=== PATIENT | female | born 1970 | race American Indian/Alaskan Native ===

== ENCOUNTER 2021-04-24 16:54 | Inpatient (IN) | payer SELFPAY ==
[2021-04-24 19:56] LABS: Bilirubin,Urine NEG (Negative); Blood,Urine SM (Negative); Color,Urine Yellow (Yellow); Mucus,Urine FEW /HPF; Protein,Urine <15 mg/dL mg/dL (Negative); Urobilinogen,Urine < 2.0 mg/dL (<2.0); WBC,Urine < 1.0 /HPF (0.0-6.0)
--- NOTE | 2021-04-24 20:02 | Emergency Department Report ---
<ROSA MARIA MCINTYRE - Last Filed: 04/24/21 21:19> ED Abdominal Pain HPI - General Chief Complaint: Abdominal Pain Stated Complaint: ABD PAIN PUI?: No Time Seen by Provider: 04/24/21 19:48 Source: patient Mode of arrival: Ambulatory Limitations: No Limitations - History of Present Illness Initial Comments: 51-year-old female presents to the ER today with complaints of epigastric abdominal pain. Patient states that her symptoms started 6 days ago and has been gradually getting worse. She reports associated abdominal bloating, decreased appetite and feeling of fullness in the epigastric region and today she vomited x1. Emesis was mainly bilious. She denies any diarrhea or constipation. She denies any UTI symptoms. She states that she is postmenopausal, she hasn't had a menstrual cycle in 12 years. She denies any fever, chills or any abnormal vaginal symptoms. She denies any history of ab dominal surgeries in the past. MD Complaint: abdominal pain -: Gradual, days(s) ED Review of Systems Comment: All other systems reviewed and negative Constitutional: denies: chills, fever Eyes: denies: eye pain, eye discharge, vision change ENT: denies: ear pain, throat pain Respiratory: denies: cough, shortness of breath, SOB with exertion, SOB at rest, wheezing Cardiovascular: denies: chest pain, palpitations Gastrointestinal: abdominal pain, nausea, vomiting. denies: diarrhea, constipation, hematemesis, melena, hematochezia Genitourinary: denies: urgency, dysuria, discharge, abnormal menses, dyspareunia Musculoskeletal: denies: back pain, joint swelling, arthralgia, myalgia Skin: denies: rash, lesions, change in color, change in hair/nails, pruritus Neurological: denies: headache, weakness, numbness, paresthesias, confusion, abnormal gait, vertigo Psychiatric: denies: anxiety, depression, auditory hallucinations, visual hallucinations, homicidal thoughts, suicidal thoughts Hematological/Lymphatic: denies: easy bleeding, easy bruising, swollen glands ED Past Medical Hx - Past Medical History Previous Medical History?: No - Surgical History Past Surgical History?: No ED Physical Exam - General Limitations: No Limitations General appearance: alert, in no apparent distress - Head Head exam: Present: atraumatic, normocephalic, normal inspection - Eye Eye exam: Present: normal appearance, PERRL, EOMI Pupils: Present: normal accommodation - ENT ENT exam: Present: normal exam, mucous membranes moist, TM's normal bilaterally - Neck Neck exam: Present: normal inspection, full ROM - Respiratory Respiratory exam: Present: normal lung sounds bilaterally. Absent: respiratory distress, wheezes, rales, rhonchi - Cardiovascular Cardiovascular Exam: Present: regular rate, normal rhythm, normal heart sounds - GI/Abdominal GI/Abdominal exam: Present: soft, tenderness (TTP epigastric, RUQ, RLQ and s uprapubic area with mild guarding but no rebound. ). Absent: distended, guarding, rebound, rigid - Neurological Exam Neurological exam: Present: alert, oriented X3, CN II-XII intact, normal gait - Psychiatric Psychiatric exam: Present: normal affect, normal mood - Skin Skin exam: Present: intact ED Medical Decision Making - Lab Data Result diagrams: 04/24/21 19:56 04/24/21 19:56 - Medical Decision Making The patient's care has been transferred to and accepted by[DEMAR Rojas]. We discussed: The patient's chief complaints; labs and imaging that have been completed and those that are still pending; any treatment provided and the patient's response to treatment; any significant change in condition; the treatment plan prior to the transfer of care. The accepting provider will follow up on all pending labs and imaging and make any necessary changes to the current impression and/or treatment plan. The accepting physician/midlevel is now responsible for the patient's care and final disposition. ED Disposition Clinical Impression: Acute cholecystitis Disposition: ADMITTED INPATIENT Condition: Serious Instructions: Abdominal Pain (ED) <VIANNEY DUFFY - Last Filed: 04/24/21 23:36> ED Review of Systems ROS: Stated complaint: ABD PAIN Other details as noted in HPI ED Course Vital Signs 04/24/21 17:07 Temperature 97.9 F Pulse Rate 60 Respiratory 18 Rate Blood Pressure 136/77 O2 Sat by Pulse 100 Oximetry ED Medical Decision Making - Lab Data Result diagrams: 04/24/21 19:56 04/24/21 19:56 - Radiology Data [facility] [address] [place] [address] Cat Scan Report Signed Patient: MONET HENRIQUEZ MR#: [id number] 0 : 1970 Acct:[id number] Age/Sex: 51 / F ADM Date: 04/24/21 Loc: ED Attending Dr: Ordering Physician: ROSA MARIA MCINTYRE Date of Service: 04/24/21 Procedure(s): CT abdomen pelvis w con Accession Number(s): [id number] cc: ROSA MARIA MCINTYRE CT ABDOMEN AND PELVIS WITH CONTRAST INDICATION / CLINICAL INFORMATION: Pt complains of epigastric abd pain with vomiting.. TECHNIQUE: Axial CT images were obtained through the abdomen and pelvis after 100 cc of Omnipaque [address] scans at this location are performed using CT dose reduction for ALARA by means of automated exposure control. COMPARISON: None available. FINDINGS: LOWER CHEST: No significant abnormality. AORTA / ARTERIES: No significant abnormality. IVC / VEINS: No significant abnormality. LYMPH NODES: No significant adenopathy. COLON: No significant abnormality. APPENDIX: Not visualized. STOMACH / SMALL BOWEL: No significant abnormality. PERITONEUM: No free fluid. No free air. No fluid collection. LIVER: Hypoattenuating lesion within the right hepatic lobe which is too small to completely characterize but statistically likely represent simple hepatic cysts. GALLBLADDER: The gallbladder is distended. There is pericholecystic fluid. There is increased density within the gallbladder lumen consistent with cholelithiasis. BILE DUCTS: No significant abnormality. PANCREAS: No significant abnormality. SPLEEN: No significant abnormality. ADRENALS: No significant abnormality. RIGHT KIDNEY / URETER: No significant abnormality. LEFT KIDNEY / URETER: No significant abnormality. URINARY BLADDER: No significant abnormality. REPRODUCTIVE ORGANS: No significant abnormality. SKELETAL SYSTEM: No significant abnormality. ADDITIONAL FINDINGS: None. IMPRESSION: 1. Abnormal appearance of the gallbladder as demonstrated by gallbladder distention, cholelithiasis and pericholecystic fluid. This is concerning for acute cholecystitis. 2. Other findings as above. Signer Name: Rad Dugan DO Signed: 04/24/2021 10:35 PM Workstation Name: [id number] Transcribed By: BALDEV Dictated By: RAD DUGAN DO Electronically Authenticated By: RAD DUGAN DO Signed Date/Time: 04/24/212234 DD/ 2230 TD/TT: - Medical Decision Making Care of patient transferred by Rosa Maria Mcintyre PA-C at shift change pending radiology results. CT of the abdomen/pelvis shows gallbladder distention with pericholecystic fluid and increased density within the gallbladder lumen consistent with calculus cholecystitis. Patient is NPO. Patient given IV Rocephin and IV Flagyl. Ultrasound of the right upper quadrant ordered for further evaluation. Case discussed with Dr. Ibarra, general surgeon, who agrees to evaluate patient on hospital admission. Case discussed with Dr. Penn, hospitalist, who agrees to admit. Patient expressed understanding and is agreeable to plan of care. Critical care attestation.: If time is entered above; I have spent that time in minutes in the direct care of this critically ill patient, excluding procedure time. ED Disposition Is pt being admited?: Yes Does the pt Need Aspirin: No Time of Disposition: 23:36
[2021-04-24 20:16] LABS: Basophils % (Auto) 0.5 % (0.0-1.8); Eosinophils % (Auto) 0.3 % (0.0-4.3); Hematocrit 38.3 % (30.3-42.9); Hemoglobin 12.6 gm/dl (10.1-14.3); Lymphocytes # (Auto) 1.1 K/mm3 (1.2-5.4); Lymphocytes % (Auto) 19.9 % (13.4-35.0); Mean Corpuscular HGB Conc 33 % (30-34); Mean Corpuscular Volume 81 fl (79-97); Monocytes # (Auto) 0.6 K/mm3 (0.0-0.8); Monocytes % (Auto) 9.9 % (0.0-7.3); Platelet Count 370 K/mm3 (140-440); Red Blood Count 4.74 M/mm3 (3.65-5.03); Red Cell Distribution Width 17.5 % (13.2-15.2)
[2021-04-24 20:36] LABS: Alanine Aminotransferase 17 units/L (7-56); Albumin 4.3 g/dL (3.9-5); BUN/Creatinine Ratio 13; Bilirubin,Direct < 0.2 mg/dL (0-0.2); Blood Urea Nitrogen 8 mg/dL (7-17); Calcium 9.8 mg/dL (8.4-10.2); Hemolysis Index 146
--- NOTE | 2021-04-24 22:39 | Cat Scan Report ---
CT ABDOMEN AND PELVIS WITH CONTRAST INDICATION / CLINICAL INFORMATION: Pt complains of epigastric abd pain with vomiting.. TECHNIQUE: Axial CT images were obtained through the abdomen and pelvis after 100 cc of Omnipaque [address] scans at this location are performed using CT dose reduction for ALARA by means of automated exposure control. COMPARISON: None available. FINDINGS: LOWER CHEST: No significant abnormality. AORTA / ARTERIES: No significant abnormality. IVC / VEINS: No significant abnormality. LYMPH NODES: No significant adenopathy. COLON: No significant abnormality. APPENDIX: Not visualized. STOMACH / SMALL BOWEL: No significant abnormality. PERITONEUM: No free fluid. No free air. No fluid collection. LIVER: Hypoattenuating lesion within the right hepatic lobe which is too small to completely characte rize but statistically likely represent simple hepatic cysts. GALLBLADDER: The gallbladder is distended. There is pericholecystic fluid. There is increased density within the gallbladder lumen consistent with cholelithiasis. BILE DUCTS: No significant abnormality. PANCREAS: No significant abnormality. SPLEEN: No significant abnormality. ADRENALS: No significant abnormality. RIGHT KIDNEY / URETER: No significant abnormality. LEFT KIDNEY / URETER: No significant abnormality. URINARY BLADDER: No significant abnormality. REPRODUCTIVE ORGANS: No significant abnormality. SKELETAL SYSTEM: No significant abnormality. ADDITIONAL FINDINGS: None. IMPRESSION: 1. Abnormal appearance of the gallbladder as demonstrated by gallbladder distention, cholelithiasis a nd pericholecystic fluid. This is concerning for acute cholecystitis. 2. Other findings as above. Signer Name: Rad Mays DO Signed: 04/24/2021 10:35 PM Workstation Name: [id number]
[2021-04-24] MEDS ORDERED: LIDOCAINE-MPF (1%) 10 MG/1 ML VIAL 5 ML INFILTRATI ONE (23:27)
[2021-04-25] MEDS ORDERED: cefTRIAXone/NS 1 GM/50 ML 1 GM/50 ML BAG IV ONE (02:15)
--- NOTE | 2021-04-25 02:17 | Ultrasound Report ---
ULTRASOUND ABDOMEN, LIMITED (RIGHT UPPER QUADRANT) INDICATION: cholecystitis. COMPARISON: None available. FINDINGS: Pancreas: Visualized portion shows no significant abnormality. Liver: Normal. Gallbladder: Gallbladder wall thickening measuring up to 4 mm in thickness with large gallstone.. Bile ducts: Normal. Common Bile Duct measures 3 mm. Free fluid: None. Additional Findings: None. IMPRESSION: Gallbladder wall thickening with large gallstone concerning for acute cholecystitis Signer Name: Geoff Corrales MD Signed: 04/25/2021 2:13 AM Workstation Name: [id number]
[2021-04-25] MEDS ORDERED: metroNIDAZOLE/NS 500 MG/100 ML 500 MG/100 ML BAG IV ONE (02:20)
[2021-04-25] MEDS ORDERED: SODIUM CHLORIDE 0.9% 1000 ML 1,000 ML IV ONE (02:20)
[2021-04-25] MEDS ORDERED: MORPHINE 4 MG/1 ML INJ IV ONE (02:20)
[2021-04-25] MEDS ORDERED: ONDANSETRON 4 MG/2 ML INJ IV ONE (02:20)
[2021-04-25] MEDS ORDERED: ALBUTEROL 2.5 MG/3 ML NEBU IH PRN (03:45)
[2021-04-25] MEDS ORDERED: ACETAMINOPHEN 325 MG TAB PO PRN (03:45)
[2021-04-25] MEDS ORDERED: MORPHINE 2 MG/1 ML INJ IV PRN ×2 (03:45→17:28)
[2021-04-25] MEDS ORDERED: HYDROmorphone 1 MG/1 ML INJ IV PRN ×2 (03:45→13:48)
[2021-04-25] MEDS ORDERED: ONDANSETRON 4 MG/2 ML INJ IV PRN ×2 (03:45→13:48)
--- NOTE | 2021-04-25 03:52 | History and Physical Report ---
History of Present Illness Date of examination: 04/25/21 Date of admission: 04/25/21 01:34 Chief complaint: Abdominal pain History of present illness: 51-year-old female with no significant past medical history was brought to the emergency room because of epigastric abdominal pain for last 6 days ago and has been gradually getting worse. She reports associated abdominal bloating, decreased appetite and feeling of fullness in the epigastric region and today she vomited x1. Emesis was mainly bilious. She denies any diarrhea or constipation. She denies any UTI symptoms. She states that she is postmenopausal, she hasn't had a menstrual cycle in 12 years. She denies any fever, chills or any abnormal vaginal symptoms. She denies any history of abdominal surgeries in the past. In the emergency room abdominal CT scan shows abnormal appearance of the gal lbladder as demonstrated by gallbladder distention cholelithiasis and pericholecystic fluid. This is concerning for acute cholecystitis. Subsequently Case discussed with surgery we are going to admit the patient surgery will see the patient in the morning for possible surgery Medications and Allergies Allergies Allergy/AdvReac Type Severity Reaction Status Date / Time Penicillins AdvReac Intermediate Hives Verified 04/25/21 02:09 Active Meds: Active Medications Sodium Chloride (Sodium Chloride 0.9% 10 Ml Flush Syringe) 10 ml IV PRN PRN PRN Reason: LINE FLUSH Review of Systems Gastrointestinal: abdominal pain, nausea, vomiting, other (Bloating) Exam - Constitutional Vitals: Temp Pulse Resp BP Pulse Ox 97.9 F 60 18 103/63 99 04/24/21 17:07 04/24/21 17:07 04/24/21 17:07 04/25/21 03:21 04/25/21 03:21 General appearance: Present: no acute distress, well-nourished - EENT Eyes: Present: PERRL ENT: hearing intact, clear oral mucosa - Neck Neck: Present: supple, normal ROM - Respiratory Respiratory effort: normal Respiratory: bilateral: CTA - Cardiovascular Heart Sounds: Present: S1 & S2. Absent: rub, click - Extremities Extremities: pulses symmetrical, No edema Peripheral Pulses: within normal limits - Abdominal General gastrointestinal: Present: soft, non-tender, tender, normal bowel sounds Female genitourinary: Present: normal - Integumentary Integumentary: Present: clear, warm, dry - Musculoskeletal Musculoskeletal: gait normal, strength equal bilaterally - Psychiatric Psychiatric: appropriate mood/affect, intact judgment & insight - Neurologic Neurologic: CNII-XII intact, moves all extremities HEART Score - HEART Score Troponin: Troponin T < 0.010 ng/mL (0.00-0.029) 04/24/21 21:26 Results - Labs CBC & Chem 7: 04/24/21 19:56 04/24/21 19:56 Labs: Laboratory Last Values WBC 5.6 K/mm3 (4.5-11.0) 04/24/21 19:56 RBC 4.74 M/mm3 (3.65-5.03) 04/24/21 19:56 Hgb 12.6 gm/dl (10.1-14.3) 04/24/21 19:56 Hct 38.3 % (30.3-42.9) 04/24/21 19:56 MCV 81 fl (79-97) 04/24/21 19:56 MCH 27 pg (28-32) L 04/24/21 19:56 MCHC 33 % (30-34) 04/24/21 19:56 RDW 17.5 % (13.2-15.2) H 04/24/21 19:56 Plt Count 370 K/mm3 (140-440) 04/24/21 19:56 Lymph % (Auto) 19.9 % (13.4-35.0) 04/24/21 19:56 [place] % (Auto) 9.9 % (0.0-7.3) H 04/24/21 19:56 Eos % (Auto) 0.3 % (0.0-4.3) 04/24/21 19:56 Baso % (Auto) 0.5 % (0.0-1.8) 04/24/21 19:56 Lymph # (Auto) 1.1 K/mm3 (1.2-5.4) L 04/24/21 19:56 [place] # (Auto) 0.6 K/mm3 (0.0-0.8) 04/24/21 19:56 Eos # (Auto) 0.0 K/mm3 (0.0-0.4) 04/24/21 19:56 Baso # (Auto) 0.0 K/mm3 (0.0-0.1) 04/24/21 19:56 Seg Neutrophils % 69.4 % (40.0-70.0) 04/24/21 19:56 Seg Neutrophils # 3.9 K/mm3 (1.8-7.7) 04/24/21 19:56 Sodium 138 mmol/L (137-145) 04/24/21 19:56 Potassium 5.7 mmol/L (3.6-5.0) H 04/24/21 19:56 Chloride 100.2 mmol/L (98-107) 04/24/21 19:56 Carbon Dioxide 23 mmol/L (22-30) 04/24/21 19:56 Anion Gap 21 mmol/L 04/24/21 19:56 BUN 8 mg/dL (7-17) 04/24/21 19:56 Creatinine 0.6 mg/dL (0.6-1.2) 04/24/21 19:56 Estimated GFR > 60 ml/min 04/24/21 19:56 BUN/Creatinine Ratio 13 % 04/24/21 19:56 Glucose 102 mg/dL (65-100) H 04/24/21 19:56 Calcium 9.8 mg/dL (8.4-10.2) 04/24/21 19:56 Total Bilirubin 0.50 mg/dL (0.1-1.2) 04/24/21 19:56 Direct Bilirubin < 0.2 mg/dL (0-0.2) 04/24/21 19:56 Indirect Bilirubin 0.3 mg/dL 04/24/21 19:56 AST 32 units/L (5-40) 04/24/21 19:56 ALT 17 units/L (7-56) 04/24/21 19:56 Alkaline Phosphatase 89 units/L (35-129) 04/24/21 19:56 Troponin T < 0.010 ng/mL (0.00-0.029) 04/24/21 21:26 Total Protein 7.4 g/dL (6.3-8.2) 04/24/21 19:56 Albumin 4.3 g/dL (3.9-5) 04/24/21 19:56 Albumin/Globulin Ratio 1.4 % 04/24/21 19:56 Lipase 13 units/L (13-60) 04/24/21 19:56 Urine Color Yellow (Yellow) 04/24/21 Unknown Urine Turbidity Clear (Clear) 04/24/21 Unknown Urine pH 6.0 (5.0-7.0) 04/24/21 Unknown Ur Specific [place] 1.009 (1.003-1.030) 04/24/21 Unknown Urine Protein <15 mg/dl mg/dL (Negative) 04/24/21 Unknown Urine Glucose (UA) Neg mg/dL (Negative) 04/24/21 Unknown Urine Ketones 20 mg/dL (Negative) 04/24/21 Unknown Urine Blood Sm (Negative) 04/24/21 Unknown Urine Nitrite Neg (Negative) 04/24/21 Unknown Urine Bilirubin Neg (Negative) 04/24/21 Unknown Urine Urobilinogen < 2.0 mg/dL (<2.0) 04/24/21 Unknown Ur Leukocyte Esterase Neg (Negative) 04/24/21 Unknown Urine WBC (Auto) < 1.0 /HPF (0.0-6.0) 04/24/21 Unknown Urine RBC (Auto) 1.0 /HPF (0.0-6.0) 04/24/21 Unknown U Epithel Cells (Auto) < 1.0 /HPF (0-13.0) 04/24/21 Unknown Urine Mucus Few /HPF 04/24/21 Unknown - Imaging and Cardiology CT scan - abdomen: report reviewed US - abdomen: report reviewed Assessment and Plan VTE prophylaxis?: Chemical Plan of care discussed with patient/family: Yes - Patient Problems (1) Acute cholecystitis Current Visit: Yes Status: Acute Plan to address problem: Admit the patient to the medical floor. NPO. D5 half-normal saline at the rate of 100 cc/h. Pepcid 20 mg IV every 12 hours. Zosyn 4.5 g IV every 8 hours. Will consult surgery for further evaluation and treatment (2) Abdominal pain Current Visit: Yes Status: Acute Plan to address problem: NPO. D5 half-normal saline at the rate of 100 cc/h. Pepcid 20 mg IV every 12 hours. Morphine 2 mg IV every 4 hours as needed (3) Nausea & vomiting Current Visit: Yes Status: Acute Plan to address problem: NPO. D5 half-normal saline at the rate of 100 cc/h. Pepcid 20 mg IV every 12 hours. Zofran 4 mg IV every 6 hours as needed (4) DVT prophylaxis Current Visit: Yes Status: Acute Plan to address problem: Heparin 5000 units subcu every 8 hours for DVT prophylaxis. Pepcid 20 mg IV every 12 hours for GI prophylaxis. Patient is a full code
[2021-04-25] MEDS ORDERED: PIPERACIL/TAZOBACTA 4.5/NS 100 4.5 GM/100 ML VIAL IV SCH (04:00)
[2021-04-25] MEDS: D5W/0.45% NACL 1,000 ML IV SCH ×2 (05:28→19:19)
[2021-04-25] MEDS: HEPARIN 5,000 UNIT/1 ML VIAL SUB-Q SCH ×3 (06:25→21:29)
--- NOTE | 2021-04-25 08:35 | Electrocardiograph Report ---
[facility] Test Date: 2021-04-25 Test Time: 03:57:49 Pat Name: MONET HENRIQUEZ Department: Room: [place] [address] Gender: F [employer]: ANGELO : 1970 Requested By: CHRISTINA MCINTYRE Order Number: [id number] Reading MD: Fito Yan Measurements Intervals [place] Rate: 51 P: 40 MS: 141 QRS: 45 QRSD: 83 T: 35 QT: 459 QTc: 422 Interpretive Statements Sinus rhythm ST elev, probable normal early repol pattern No previous ECG available for comparison Electronically Signed On 04-25-2021 8:35:21 EDT by Fito Yan
[2021-04-25] MEDS: FAMOTIDINE 20 MG/2 ML INJ IV SCH ×2 (10:00→21:29)
[2021-04-25] MEDS ORDERED: metroNIDAZOLE/NS 500 MG/100 ML 500 MG/100 ML BAG IV SCH (10:00)
--- NOTE | 2021-04-25 10:48 | Consultation ---
History of Present Illness Consult date: 04/25/21 Reason for consult: gallstones - History of present illness History of present illness: 51-year-old otherwise healthy female presented to the emergency room with a 4 to 5-day history of progressive vague abdominal fullness and discomfort. She began to have nausea and vomiting early yesterday which is what brought her to the emergency room. Patient says that she has had the symptoms off and on for the last 2 or 3 years. Patient had a CT scan and ultrasound that both showed a distended gallbladder with pericholecystic fluid and gallstones. Past History Past Medical History: No medical history Past Surgical History: No surgical history Social history: no significant social history Family history: no significant family history Medications and Allergies Allergies Allergy/AdvReac Type Severity Reaction Status Date / Time Penicillins AdvReac Intermediate Hives Verified 04/25/21 02:09 Active Meds: Active Medications Acetaminophen (Acetaminophen 325 Mg Tab) 650 mg PO Q4H PRN PRN Reason: Pain MILD(1-3)/Fever >100.5/SCHMITT Albuterol (Albuterol 2.5 Mg/3 Ml Nebu) 2.5 mg IH Q4HRT PRN PRN Reason: Shortness Of Breath Albuterol/Ipratropium (Ipratropium/Albuterol Sulfate 3 Ml Ampul.Neb) 1 ampul IH Q6HRT ADOLFO Famotidine (Famotidine 20 Mg/2 Ml Inj) 20 mg IV BID [facility] Heparin Sodium (Porcine) (Heparin 5,000 Unit/1 Ml Vial) 5,000 unit SUB-Q Q8HR [facility] Last Admin: 04/25/21 06:25 Dose: 5,000 unit Documented by: Hydromorphone HCl (Hydromorphone 1 Mg/1 Ml Inj) 0.5 mg IV Q3H PRN PRN Reason: Pain , Severe (7-10) Dextrose/Sodium Chloride (D5/0.45ns) 1,000 mls @ 100 mls/hr IV DIRECT [facility] Last Admin: 04/25/21 05:28 Dose: 100 mls/hr Documented by: Metronidazole (Flagyl 500 Mg/100 Ml) 500 mg in 100 mls @ 100 mls/hr IV Q8H ADOLFO Ceftriaxone Sodium (Rocephin/Ns 1 Gm/50 Ml) 1 gm in 50 mls @ 100 mls/hr IV Q24H ADOLFO Morphine Sulfate (Morphine 2 Mg/1 Ml Inj) 2 mg IV Q4H PRN PRN Reason: Pain, Moderate (4-6) Ondansetron HCl (Ondansetron 4 Mg/2 Ml Inj) 4 mg IV Q8H PRN PRN Reason: Nausea And Vomiting Sodium Chloride (Sodium Chloride 0.9% 10 Ml Flush Syringe) 10 ml IV BID ADOLFO Sodium Chloride (Sodium Chloride 0.9% 10 Ml Flush Syringe) 10 ml IV PRN PRN PRN Reason: LINE FLUSH Review of Systems All systems: negative - Constitutional poor appetite - Cardiovascular no chest pain - Respiratory no cough - Gastrointestinal abdominal pain, nausea, vomiting, no jaundice - Genitourinary Genitourinary: no dysuria Exam Vital Signs Temp Pulse Resp BP Pulse Ox 97.9 F 60 18 136/77 100 04/24/21 17:07 04/24/21 17:07 04/24/21 17:07 04/24/21 17:07 04/24/21 17:07 - General physical appearance Positive: well developed, no distress, moderate pain - ENT Positive: no hearing loss - Respiratory Positive: normal expansion, normal respiratory effort - Cardiovascular Heart Sounds: Present: S1 & S2 - Extremities Extremities: no ischemia - Abdomen Abdomen: Present: soft, other (Tender to palpation in the epigastric and right upper quadrant areas.). Absent: distended, guarding, rigid, surgical scars Results - Labs 04/24/21 19:56 04/24/21 19:56 Abnormal lab results 04/24/21 04/24/21 Range/Units 19:56 19:56 MCH 27 L (28-32) pg RDW 17.5 H (13.2-15.2) % [place] % (Auto) 9.9 H (0.0-7.3) % Lymph # (Auto) 1.1 L (1.2-5.4) K/mm3 Potassium 5.7 H (3.6-5.0) mmol/L Glucose 102 H (65-100) mg/dL Diabetes panel 04/24/21 Range/Units 19:56 Sodium 138 (137-145) mmol/L Potassium 5.7 H (3.6-5.0) mmol/L Chloride 100.2 (98-107) mmol/L Carbon Dioxide 23 (22-30) mmol/L BUN 8 (7-17) mg/dL Creatinine 0.6 (0.6-1.2) mg/dL Glucose 102 H (65-100) mg/dL Calcium 9.8 (8.4-10.2) mg/dL AST 32 (5-40) units/L ALT 17 (7-56) units/L Alkaline Phosphatase 89 (35-129) units/L Total Protein 7.4 (6.3-8.2) g/dL Albumin 4.3 (3.9-5) g/dL Calcium panel 04/24/21 Range/Units 19:56 Calcium 9.8 (8.4-10.2) mg/dL Albumin 4.3 (3.9-5) g/dL Pituitary panel 04/24/21 Range/Units 19:56 Sodium 138 (137-145) mmol/L Potassium 5.7 H (3.6-5.0) mmol/L Chloride 100.2 (98-107) mmol/L Carbon Dioxide 23 (22-30) mmol/L BUN 8 (7-17) mg/dL Creatinine 0.6 (0.6-1.2) mg/dL Glucose 102 H (65-100) mg/dL Calcium 9.8 (8.4-10.2) mg/dL Adrenal panel 04/24/21 Range/Units 19:56 Sodium 138 (137-145) mmol/L Potassium 5.7 H (3.6-5.0) mmol/L Chloride 100.2 (98-107) mmol/L Carbon Dioxide 23 (22-30) mmol/L BUN 8 (7-17) mg/dL Creatinine 0.6 (0.6-1.2) mg/dL Glucose 102 H (65-100) mg/dL Calcium 9.8 (8.4-10.2) mg/dL Total Bilirubin 0.50 (0.1-1.2) mg/dL AST 32 (5-40) units/L ALT 17 (7-56) units/L Alkaline Phosphatase 89 (35-129) units/L Total Protein 7.4 (6.3-8.2) g/dL Albumin 4.3 (3.9-5) g/dL - Imaging CT scan - abdomen: report reviewed, image reviewed CT scan - pelvis: report reviewed, image reviewed US - abdomen: report reviewed, image reviewed Assessment and Plan 51-year-old female with acute cholecystitis and cholelithiasis. Afebrile and stable. Had a long discussion with the patient about treatment options including surgical and nonsurgical. Patient says she would like to think about it as she is just started a new job. We will follow up with her later today. I f she decides to have surgery will take 2 OR today for laparoscopic cholecystectomy.
[2021-04-25] MEDS: IPRATROPIUM/ALBUTEROL SULFATE 3 ML AMPUL.NEB IH SCH ×2 (12:40→17:33)
--- NOTE | 2021-04-25 13:08 | Anesthesia Consultation ---
Anesthesia Consult and Med Hx Date of service: 04/25/21 - Airway Anesthetic Teeth Evaluation: Good ROM Head & Neck: Adequate Mental/Hyoid Distance: Adequate Mallampati Class: Class II Intubation Access Assessment: Probably Good - Pulmonary Exam CTA: Yes - Cardiac Exam Cardiac Exam: RRR - Pre-Operative Health Status ASA Pre-Surgery Classification: ASA1 Proposed Anesthetic Plan: General - Pulmonary Hx Smoking: No Hx Asthma: No Hx Pneumonia: No Hx Sleep Apnea: No - Cardiovascular System Hx Hypertension: No Hx Heart Attack/AMI: No - Central Nervous System Hx Neuromuscular Disorder: No - Gastrointestinal Hx Gastroesophageal Reflux Disease: No - Endocrine Hx Renal Disease: No Hx Non-Insulin Dependent Diabetes: No - Other Systems Hx Alcohol Use: No Hx Substance Use: No Hx Cancer: No Hx Obesity: No - Additional Comments Anesthesia Medical History Comments: No history of anesthetic complications.
--- NOTE | 2021-04-25 13:09 | Anesthesia Day of Surgery ---
Anesthesia Day of Surgery - Day of Surgery Patient Examined: Yes Patient H&P Reviewed: Yes Patient is NPO: Yes
--- NOTE | 2021-04-25 13:29 | Event Note ---
Date: 04/25/21 Patient seen and examined, presented with acute cholecystitis, general surgery consulted and plan for laparoscopic cholecystectomy today. Continue to follow clinically and possible discharge once cleared by surgery.
[2021-04-25] MEDS ORDERED: BUPIVACAINE/PF (0.5%) 5 MG/1 ML 30 ML VIAL INFILTRATI ONE ×2 (13:39→14:25)
[2021-04-25] MEDS ORDERED: LIDOCAINE (1%) 10 MG/1 ML VIAL 20 ML MDV ONE (13:40)
[2021-04-25] MEDS ORDERED: fentaNYL 100 MCG/2 ML INJ ONE (13:46)
[2021-04-25] MEDS ORDERED: propofoL 200 MG/20 ML VIAL IV ONE (13:46)
[2021-04-25] MEDS ORDERED: MIDAZOLAM 2 MG/2 ML INJ ONE (13:46)
[2021-04-25] MEDS ORDERED: SODIUM CHLORIDE 0.9% IRR 1,500 ML BOTTLE IR ONE (14:25)
[2021-04-25] MEDS ORDERED: LIDOCAINE (1%) 10 MG/1 ML VIAL 20 ML MDV INFILTRATI ONE (14:25)
[2021-04-25] MEDS ORDERED: dexAMETHasone 20 MG/5 ML VIAL ONE (14:34)
[2021-04-25] MEDS ORDERED: KETOROLAC 30 MG/1 ML INJ ONE (14:34)
[2021-04-25] MEDS ORDERED: ONDANSETRON 4 MG/2 ML INJ ONE (14:34)
[2021-04-25] MEDS ORDERED: ROCURONIUM 50 MG/5 ML INJ IV ONE (14:34)
[2021-04-25] MEDS ORDERED: LIDOCAINE MPF (2%) 20 MG/1 ML VIAL 5 ML ONE (14:34)
[2021-04-25] MEDS ORDERED: GLYCOPYRROLATE 0.4 MG/2 ML INJ ONE (15:08)
[2021-04-25] MEDS ORDERED: NEOSTIGMINE 10MG/10 ML INJ MDV ONE (15:08)
--- NOTE | 2021-04-25 16:03 | Operative Report ---
Operative Report Operative Report: Procedure Performed: Lap cholecystectomy Date of Service: 04/25/2021 Primary Surgeon: Ashleigh Ibarra MD Assisted by: Iqra Trujillo DO Anesthesia: General Pre-Operative Diagnosis: cholelithiasis with acute cholecystitis Post-Operative Diagnosis: Same Indications for Procedure: Patient is a 51-year-old female who presented to the emergency room with progressive abdominal pain. CT scan and ultrasound of the abdomen showed acute cholecystitis with cholelithiasis. Informed consent was obtained and the patient expressed understanding of the risk and benefits. Description of Procedure(s): The patient was brought to the operating room and underwent general anesthesia after lower extremity SCD were placed. The abdomen was prepped and draped in the standard fashion. IV antibiotics were given and a time out was performed. Using a veress needle via a stab incision in the left subcostal region, the abdomen was insuflated to a pressure of 15mmHg. Using optivew technique, a 5mm trocar was placed just superior and to the left of the umbilicus. There was no gross injury noted to any intra-abdominal structures. After which working trocars were placed under direct visualization. A 12 mm trocar was placed in the epigastrium, and two more 5 mm trocars were inserted in the right lateral sites. The gallbladder was located and grasped at the fundus and retracted up toward the patient's right shoulder. The infundibulum was grasped and retracted laterally. A window was made between the cystic artery and the cystic duct, clearly delineating the two structures. These were clipped with a 5 mm clip obgyn nurse and divided. The peritoneum was incised with hook cautery, and the gallbladder was taken from the liver bed, ensuring hemostatis. The endocatch bag was placed in the abdomen and the gallbladder was then removed from the abdomen. The epigastric port site had to be extended to be able to deliver the large gallbladder out abdominal cavity. There was some muscle bleeding that was controlled with electrocautery. The liver bed was examined and the trocars removed under direct visualization. The insufflation was then terminated. The epigastric incision was closed with a running 0 Vicryl suture. The skin incisions were closed using 4-0 Monocryl sutures. All the wounds dressed with dermabond. The patient tolerated the procedure well, was extubated and taken to the recovery room in satisfactory condition. Finding(s): Edematous gallbladder with 2 large stones Intra-Operative Complications: none immediate Specimens Removed: Gallbladder Estimated Blood Loss: 30ml
--- NOTE | 2021-04-25 16:48 | Post Anesthesia Evaluation ---
- Post Anesthesia Evaluation Patient Participated: Yes Airway Patent: Yes Stable Respiratory Function: Yes Nausea/Vomiting: No Temp > 96.8F: Yes Pain Manageable: Yes Adequeate Hydration: Yes Anesthesia Complications: No
[2021-04-25] MEDS ORDERED: oxyCODONE /ACETAMINOPHEN 5-325MG TAB PO PRN (17:28)
[2021-04-25] MEDS: KETOROLAC 30 MG/1 ML INJ IV SCH (17:44)
[2021-04-26] MEDS: KETOROLAC 30 MG/1 ML INJ IV SCH ×2 (00:32→06:24)
[2021-04-26] MEDS ORDERED: cefTRIAXone/NS 1 GM/50 ML 1 GM/50 ML BAG IV SCH (02:00)
[2021-04-26] MEDS: D5W/0.45% NACL 1,000 ML IV SCH (02:38)
[2021-04-26] MEDS: IPRATROPIUM/ALBUTEROL SULFATE 3 ML AMPUL.NEB IH SCH ×4 (03:19→09:28)
[2021-04-26 05:45] LABS: Basophils % (Auto) 0.3 % (0.0-1.8); Hematocrit 33.3 % (30.3-42.9); Lymphocytes # (Auto) 0.5 K/mm3 (1.2-5.4); Mean Corpuscular HGB Conc 33 % (30-34); Mean Corpuscular Volume 79 fl (79-97); Monocytes # (Auto) 0.5 K/mm3 (0.0-0.8); Monocytes % (Auto) 6.9 % (0.0-7.3); Platelet Count 228 K/mm3 (140-440); Red Blood Count 4.21 M/mm3 (3.65-5.03); Red Cell Distribution Width 17.3 % (13.2-15.2)
[2021-04-26 06:15] LABS: Alanine Aminotransferase 19 units/L (7-56); Albumin 3.5 g/dL (3.9-5); Blood Urea Nitrogen 5 mg/dL (7-17); Calcium 8.6 mg/dL (8.4-10.2); Hemolysis Index 2
[2021-04-26 06:17] LABS: BUN/Creatinine Ratio 8
[2021-04-26] MEDS: HEPARIN 5,000 UNIT/1 ML VIAL SUB-Q SCH (06:24)
--- NOTE | 2021-04-26 08:18 | Discharge Summary ---
Providers - Providers Date of Admission: 04/25/21 01:34 Attending physician: LONI ROJAS 04/24/21 23:29 Consult to Physician [CONS] Stat Comment: Consulting Provider: DELLA DE LA O Physician Instructions: Reason For Exam: cholecystitis Primary care physician: PIECE PRESSER Hospitalization Condition: Serious Exam - Constitutional Vitals: Temp Pulse Resp BP Pulse Ox 98.3 F 64 18 105/70 98 04/25/21 22:00 04/25/21 22:00 04/25/21 22:00 04/25/21 22:00 04/25/21 23:06 Plan
[2021-04-26] MEDS: FAMOTIDINE 20 MG/2 ML INJ IV SCH (10:42)
[2021-04-26 11:11] VITALS: BP 109/73
== END 2021-04-26 12:30 | disposition home or self-care (01) | DRG 419 ==
LOC: ED 16:54 → 3A 04-25 01:34
PROVIDERS: ADMIT Hospitalist; ATTEND Internal Medicine
PROC: 0FT44ZZ Resection of Gallbladder, Percutaneous Endoscopic Approach (ICD-10-PCS; principal; 2021-04-25)
DX: K80.00 Calculus of gallbladder with acute cholecystitis without obstruction (principal)
CPT/HCPCS: 36415; 74177; 76705; 80048; 80053; 80076; 81001; 83690; 84484; 85025; 88304; 93005; G0378; J7070; J0696; J1100; J1644; J1885; J2250; J2270; J2405; J2704; J2710; J3010; J7030; Q9967